=== PATIENT | male | born 1940 | race Caucasian/White ===

== ENCOUNTER 2017-01-27 22:46 | Emergency (ER) | payer MEDICARE ==
[~2017-01-27] VITALS: Ht 177.8 cm; Wt 90.0 kg
[~2017-01-27 22:46] MED LIST: ACET300T2 PO; ALPR0.25 PO; ATOR1TAB18 PO; CARV25TA PO; DIGO0.25 PO; LEVO75TA3 PO; OSTETAB4 PO; RANI150C PO; SERT-129 PO; SPIR25TA PO; TORS20TA PO; VALS1TAB65 PO; WARF-23 PO
[2017-01-27 22:55] VITALS: BP 110/56; PULSE 55; RESP 20; TEMP 97.9; O2SAT 98
[2017-01-27 22:59] VITALS: PULSE 55; O2SAT 98
[2017-01-27] MEDS ORDERED: SODIUM CHLORIDE 0.9% FLUSH 10 ML FLUSH IVF PRN (23:00)
[2017-01-27] MEDS ORDERED: FUROSEMIDE 40 MG/4 ML VIAL IVP ONE (23:00)
[2017-01-27 23:16] VITALS: BP_SYST 105; BP_SYST 110; BP_DIAS 56; PULSE 86; RESP 16; O2SAT 96
[2017-01-27 23:21] LABS: HEMATOCRIT 37.2 % (39.0-51.0); MEAN CELL VOLUME 83.4 FL (80.0-100.0); MEAN CORPUSCULAR HEMOGLOBIN 27.9 PG (27.0-34.0); MEAN CORPUSCULAR HGB CONC 33.4 % (32.0-36.0); PLATELET COUNT 76 TH/MM3 (150-450); RED BLOOD COUNT 4.46 MIL/MM3 (4.50-5.90); RED CELL DISTRIBUTION WIDTH 17.1 % (11.6-17.2); WHITE BLOOD COUNT 2.6 TH/MM3 (4.0-11.0)
[2017-01-27 23:23] LABS: HEMO FLAGS AUTO DIFF
--- NOTE | 2017-01-27 23:26 | RADRPT ---
EXAM DATE/TIME: 01/27/2017 23:02 [facility] COMPARISON: No previous studies available for comparison. INDICATIONS : Short of breath. MEDICAL HISTORY : None. SURGICAL HISTORY : CABG. Pacemaker. ENCOUNTER: Initial ACUITY: 1 day PAIN SCORE: 0/10 LOCATION: Bilateral chest FINDINGS: Single AP view of the chest. AICD in place. Right-sided [id number] with the tip of the catheter in the region of the distal SVC. Minimal bilateral lower lung zone opacity likely representing atelecta sis. No evidence of pleural effusion or pneumothorax. Moderate severity cardiac silhouette enlargemen t. CONCLUSION: 1. Moderate cardiac silhouette enlargement. 2. Minimal bilateral lower lung zone opacity likely representing atelectasis. Ton Cannon MD on January 27, 2017 at 23:22 Board Certified Radiologist. This report was verified electronically.
[2017-01-27 23:31] LABS: APTT (PATIENT) 25.9 SEC (24.3-30.1); PROTHROMBIN TIME - PATIENT 11.3 SEC (9.8-11.6)
[2017-01-27 23:40] LABS: ANION GAP 7 MEQ/L (5-15); AST (GOT) 69 U/L (15-37); BICARBONATE 35.9 MEQ/L (21.0-32.0); BLOOD UREA NITROGEN 20 MG/DL (7-18); CHLORIDE 91 MEQ/L (98-107); GLOMERULAR FILTRATION RATE 56 ML/MIN (>89); MAGNESIUM 1.8 MG/DL (1.5-2.5); POTASSIUM 3.9 MEQ/L (3.5-5.1); SODIUM (NA) 134 MEQ/L (136-145)
[2017-01-27 23:41] LABS: ALT (GPT) 61 U/L (12-78)
[2017-01-27 23:45] LABS: ALKALINE PHOSPHATASE 63 U/L (45-117); TOTAL BILIRUBIN ADULT 0.8 MG/DL (0.2-1.0)
[2017-01-28 00:02] LABS: BANDS 26 % (0-6); CORRECTED NUCLEATED RBC 2 /100 WBC (0-0); EOSINOPHILS 1 % (0-4); METAMYELOCYTES 14 % (0-1); MYELOCYTES 2 % (0-0); POLYS (SEG NEUTROPHILS) 34 % (16-70); PROMYELOCYTES 2 % (0-0); WBC DIFF SAMPLE 100
[2017-01-28 00:03] LABS: PLATELET ESTIMATE SMEAR LOW (NORMAL); SCAN/DIFF FINAL DIFF MANUAL
[2017-01-28 00:06] LABS: DOHLE BODIES PRESENT (NONE SEEN); PLATELET MORPHOLOGY NORMAL (NORMAL); TOXIC GRANULATION 1+ (NORMAL)
[2017-01-28 00:07] LABS: OVALOCYTES 1+ (NORMAL)
[2017-01-28] MEDS ORDERED: IOHEXOL 350 MG/ML 10 ML VIAL (for RAD DIAG) IV ONE (00:14)
--- NOTE | 2017-01-28 00:33 | RADRPT ---
EXAM DATE/TIME: 01/28/2017 00:08 [facility] COMPARISON: No previous studies available for comparison. INDICATIONS : Shortness of breath; rule out pulmonary embolus. IV CONTRAST: 71 cc Omnipaque 350 (iohexol) IV RADIATION DOSE: CTDIvol (mGy) MEDICAL HISTORY : Myocardial infarction. Hernia, hiatal. SURGICAL HISTORY : CABG Pacemaker.Defibrillator. ENCOUNTER: Initial ACUITY: 1 day PAIN SCALE: 3/10 LOCATION: chest TECHNIQUE: Volumetric scanning of the chest was performed using a pulmonary embolism protocol MIP images were re constructed. Using automated exposure control and adjustment of the mA and/or kV according to patien t size, radiation dose was kept as low as reasonably achievable to obtain optimal diagnostic quality images. DICOM format image data is available electronically for review and comparison. Follow-up recommendations for incidentally detected pulmonary nodules are based at a minimum on nodul e size and patient risk factors according to Fleischner Society Guidelines. FINDINGS: PULMONARY ARTERIES: No evidence of pulmonary embolus. LUNGS: Confluent opacity of the inferior aspects of the lower lobes along with bronchial plugging. Patchy cl ustered nodular densities in the lingula likely inflammatory. Scarring at the lung apices. PLEURAE: There is no pleural thickening or pleural effusion. MEDIASTINUM: Coronary artery calcifications. Aortic calcification. Moderate cardiac enlargement. AICD in place. No enlarged lymph nodes. MUSCULOSKELETAL: Within normal limits for patient age. MISCELLANEOUS: Multiple rounded hepatic hypodensities likely representing cysts. CONCLUSION: 1. No evidence of pulmonary embolus. 2. Cardiomegaly. AICD in place. Coronary artery calcifications. 3. Mild consolidation versus atelectasis the inferior aspects of the lower lobes. 4. Multiple hepatic lesions likely representing cysts. Ton Cannon MD on January 28, 2017 at 0:25 Board Certified Radiologist. This report was verified electronically.
--- NOTE | 2017-01-28 02:07 | PD ---
HPI Chief Complaint: Respiratory Symptoms Time Seen by Provider: 22:58 Travel History International Travel<30 days: No Contact w/Intl Traveler<30days: No Traveled to known affect area: No History of Present Illness HPI 76-year-old man, recent diagnosis of POWDER CORE TESTER lymphoma, discharged earlier this afternoon from [facility], presents with shortness of breath. He's also had lower extremity swelling is been worse since he left. No chest pain. Speaking with his , it sounds like they wanted him to stay little bit longer. He is getting chemotherapy now. He had a Neupogen shot yesterday supposed to go to [place] again tomorrow for further treatment. History Past Medical History Narrative Medical CAD, CABG, NC Hypertension Tetanus Vaccination: < 5 Years Influenza Vaccination: Yes Social History Alcohol Use: No Tobacco Use: No Allergies-Medications (Allergen,Severity, Reaction): Coded Allergies: Aspirin (Verified Allergy, Severe, SWELLING, 09/07/16) PT STATES ALLERGIC TO COATED ASPIRIN. Reported Meds & Prescriptions Reported Meds & Active Scripts Active Reported Osteo Bi-Flex Advanced Do ([facility] Natural Products) 1 Tab Tab 1 Tab PO BID Alprazolam 0.25 Mg Tab 0.25 Mg PO TID PRN Levothyroxine (Levothyroxine Sodium) 75 Mcg Tab 75 Mcg PO DAILY Ranitidine (Ranitidine HCl) 150 Mg Cap 150 Mg PO BID Atorvastatin (Atorvastatin Calcium) 80 Mg Tab 80 Mg PO HS Torsemide 20 Mg Tab 20 Mg PO BID Digoxin 0.25 Mg Tab 0.25 Mg PO DAILY Sertraline (Sertraline HCl) 100 Mg Tab 100 Mg PO BID Acetaminophen-Codeine 300-30 mg Tab 1 Tab PO BID PRN Spironolactone 25 Mg Tab 25 Mg PO DAILY Valsartan 160 Mg Tab 160 Mg PO BID Warfarin 5 Mg Tab 5 Mg PO DAILY Carvedilol 25 Mg Tab 25 Mg PO BID Review of Systems Except as stated in HPI: all other systems reviewed are Neg Physical Exam Narrative GENERAL: 76-year-old man, looks a little bit unwell. SKIN: Focused skin assessment warm/dry. HEAD: Atraumatic. Normocephalic. His a bandage on the front of his head from recent biopsy. EYES: Pupils equal and round. No scleral icterus. No injection or drainage. ENT: No nasal bleeding or discharge. Mucous membranes pink and moist. NECK: Trachea midline. No JVD. CARDIOVASCULAR: Regular rate and rhythm. No murmur appreciated. RESPIRATORY: No accessory muscle use. Clear to auscultation. Breath sounds equal bilaterally. GASTROINTESTINAL: Abdomen soft, non-tender, nondistended. Hepatic and splenic margins not palpable. MUSCULOSKELETAL: No obvious deformities. Pitting edema both lower extremities. Bandages over skin tears on the elbows and knees. NEUROLOGICAL: Awake and alert. No obvious cranial nerve deficits. Motor grossly within normal limits. Normal speech. PSYCHIATRIC: Appropriate mood and affect; insight and judgment normal. Data Data Last Documented VS Vital Signs Date Time Temp Pulse Resp B/P Pulse Ox O2 Delivery O2 Flow Rate FiO2 01/27/17 23:16 86 16 105/56 96 Non-Rebreather 15 01/27/17 22:55 97.9 Orders Complete Blood Count With Diff (01/27/17 22:58) Comprehensive Metabolic Panel (01/27/17 22:58) B-Type Natriuretic Peptide (01/27/17 22:58) Act Partial Throm Time (Ptt) (01/27/17 22:58) Prothrombin Time / Inr (Pt) (01/27/17 22:58) Magnesium (Mg) (01/27/17 22:58) Troponin I (01/27/17 22:58) Urinalysis - C+S If Indicated (01/27/17 22:58) Iv Access Insert/Monitor (01/27/17 22:58) Electrocardiogram (01/27/17 22:58) Ecg Monitoring (01/27/17 22:58) Oximetry (01/27/17 22:58) Oxygen Administration (01/27/17 22:58) Chest, Single Ap (01/27/17 22:58) Ct Pulmonary Angiogram (01/27/17 22:58) Sodium Chloride 0.9% Flush (Ns Flush) (01/27/17 23:00) Furosemide Inj (Lasix Inj) (01/27/17 23:00) Iohexol 350 Inj (Omnipaque 350 Inj) (01/28/17 00:14) Labs Laboratory Tests Test 01/27/17 23:00 Prothrombin Time 11.3 SEC Prothromb Time International 1.0 RATIO Ratio Activated Partial 25.9 SEC Thromboplast Time Sodium Level 134 MEQ/L Potassium Level 3.9 MEQ/L Chloride Level 91 MEQ/L Carbon Dioxide Level 35.9 MEQ/L Anion Gap 7 MEQ/L Blood Urea Nitrogen 20 MG/DL Creatinine 1.25 MG/DL Estimat Glomerular Filtration 56 ML/MIN Rate Random Glucose 71 MG/DL Calcium Level 8.7 MG/DL Magnesium Level 1.8 MG/DL Total Bilirubin 0.8 MG/DL Aspartate Amino Transf 69 U/L (AST/SGOT) Alanine Aminotransferase 61 U/L (ALT/SGPT) Alkaline Phosphatase 63 U/L Troponin I 0.10 NG/ML B-Type Natriuretic Peptide 99 PG/ML Total Protein 5.6 GM/DL Albumin 2.4 GM/DL White Blood Count 2.6 TH/MM3 Red Blood Count 4.46 MIL/MM3 Hemoglobin 12.4 GM/DL Hematocrit 37.2 % Mean Corpuscular Volume 83.4 FL Mean Corpuscular Hemoglobin 27.9 PG Mean Corpuscular Hemoglobin 33.4 % Concent Red Cell Distribution Width 17.1 % Platelet Count 76 TH/MM3 Mean Platelet Volume 7.0 FL Neutrophils (%) (Auto) % Lymphocytes (%) (Auto) % Monocytes (%) (Auto) % Eosinophils (%) (Auto) % Basophils (%) (Auto) % Neutrophils # (Auto) TH/MM3 Lymphocytes # (Auto) TH/MM3 Monocytes # (Auto) TH/MM3 Eosinophils # (Auto) TH/MM3 Basophils # (Auto) TH/MM3 CBC Comment AUTO DIFF Differential Total Cells 100 Counted Neutrophils % (Manual) 34 % Band Neutrophils % 26 % Lymphocytes % 15 % Monocytes % 6 % Eosinophils % 1 % Neutrophils # (Manual) 2.0 TH/MM3 Metamyelocytes 14 % Myelocytes 2 % Promyelocytes 2 % Nucleated Red Blood Cells 2 /100 WBC Differential Comment FINAL DIFF MANUAL Atypical Lymphocytes % Toxic Granulation 1+ Dohle Bodies PRESENT Platelet Estimate LOW Platelet Morphology Comment NORMAL Ovalocytes 1+ MDM Medical Decision Making Medical Screen Exam Complete: Yes Emergency Medical Condition: Yes Interpretation(s) My review of EKG: A. fib, V paced, no definite evidence of acute ischemia. LABS: CBC remarkable for leukopenia, 26% bandemia, CMP is unremarkable Troponin 0.1 BNP is not elevated Coags unremarkable CTA negative for PE. Differential Diagnosis CHF, pliable overload, PE, ACS, other Narrative Course Medical decision making 76 old man presents emergent or shortness of breath. He has edema in both his legs appear somewhat volume overloaded. His recent diagnosis POWDER CORE TESTER lymphoma, he just started chemotherapy, he just got Neupogen shots. I recommended he be admitted to the hospital. He would like to be readmitted to [place]. He is due for his cancer care there tomorrow morning as it is. I think this is enough to justify the transfer as medically necessary. I told him that we can arrange for transfer for him. We contacted [place]'s transfer center. Shortly after contacting them, patient states he wants to go by private vehicle, is unwilling to stay to wait for formal transfer, or for medical transport. We discussed the risks of doing so, explained to be leaving AGAINST MEDICAL ADVICE , and a. Decompensated in route. His oxygen saturation did not much improved at this time. His troponins elevated. He and his discussed in the understand the risks and elected to leave AGAINST MEDICAL ADVICE with the intention of presenting to the emergency department at [facility]. We still a phone call pending to Dr. kane clifford and I will discuss with the medical team if they call back. Patient Instructions: General Instructions, Dyspnea (ED), Against Medical Advice (ED) Departure Forms: Tests/Procedures Clarke Alexandra MD Jan 28, 2017 02:07
--- NOTE | 2017-01-28 08:35 | EKG ---
Date Performed: 01/27/2017 Time Performed: 23:09:26 PTAGE: 76 years EKG: ELECTRONIC VENTRICULAR PACEMAKER ABNORMAL RHYTHM ECG PREVIOUS TRACING : 03/17/2010 14.43 Compared to previous tracing, ventricular pacing is now irene dent. DOCTOR: Mumtaz Wells Interpretating Date/Time 01/28/2017 08:34:04
== END 2017-01-28 06:56 | disposition left against medical advice (07) ==
LOC: NEPC 22:46
DX: R60.9 Edema, unspecified (principal); E87.70 Fluid overload, unspecified; D72.819 Decreased white blood cell count, unspecified; I48.91 Unspecified atrial fibrillation; I25.10 Atherosclerotic heart disease of native coronary artery without angina pectoris; I25.2 Old myocardial infarction; I10 Essential (primary) hypertension; Z79.899 Other long term (current) drug therapy; Z79.01 Long term (current) use of anticoagulants
CPT/HCPCS: 71010; 71275; 80053; 83735; 83880; 84484; 85007; 85027; 85610; 85730; 93005; 96374; 99284; J1940; Q9967